=== PATIENT | female | born 1980 | race African-American/Black ===

== ENCOUNTER 2020-07-19 13:00 | Inpatient (IN) | payer BC ==
[~2020-07-19] VITALS: Ht 165.1 cm; Wt 62.5 kg
--- NOTE | ~2020-07-19 | HC ---
[facility] [place] [address] CONSULTATION Name: ROCCO GOLDEN Room #: 459-P [facility] IN M.R.#: [id number] Admission: 07/19/20 Attend Phys: Harpreet Clayton MD Discharge: 07/23/20 Date of : 76 Report #: [id number] THIS REPORT FOR: cc: Reji Ruano K. Steven DO Lundgren, Craig H. MD [facility] ~ DOC #: [id number] Mike Silverman MD [facility] DATE OF SERVICE: 07/21/2020 REASON FOR CONSULTATION: Bradycardia. 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 She was admitted with altered mental status and fevers in excess of 103 degrees. While on telemetry monitoring, she was found to be bradycardic. I was asked to see her in this regard. I have reviewed all telemetry strips. These demonstrate either sinus rhythm or sinus bradycardia. There was concern about junctional bradycardia at a heart rate of 44 during sleeping hours last night at around 4:00 a.m. I have reviewed these strips and there is a low P-wave amplitude found and this is not junctional rhythm, but rather sinus bradycardia. She remains asymptomatic. No chest pain, pressure, or ischemic type symptoms. No heart failure symptoms, no palpitations. No history of near syncope or syncope. ALLERGIES: No known drug allergies. MEDICATIONS: She takes no medicine on a regular basis. PAST MEDICAL HISTORY: Medical records have been reviewed and include a history of asthma and tobacco dependency. SOCIAL HISTORY: She works as a nurse. She smokes and quit last November. She uses marijuana. FAMILY HISTORY: Unremarkable for premature coronary artery disease. REVIEW OF SYSTEMS: All systems negative except as that noted above. PHYSICAL EXAMINATION: GENERAL: Reveals a pleasant woman in no distress. VITAL SIGNS: Blood pressure is 126/80, heart rate of 50 and regular. She is afebrile. HEENT: There are neither xanthelasma, subcutaneous xanthomata; oral mucosal, digital cyanosis or kyphoscoliosis present. LUNGS: Clear to auscultation and percussion. CARDIAC: Regular rate and rhythm with normal S1, S2. No murmurs or rubs. [facility] [address] [place] [address] CONSULTATION Name: ROCCO GOLDEN Room #: 459-P [facility] IN [facility].#: [id number] Admission: 07/19/20 Attend Phys: Harpreet Clayton MD Discharge: 07/23/20 Date of : 76 Report #: [id number] ABDOMEN: Soft and nontender. EXTREMITIES: Without cyanosis, clubbing or edema. Radial pulses are 2+. NEUROLOGIC: She is alert with a nonfocal exam. LABORATORY DATA: Sodium 142, potassium 4.5, creatinine 1.8. TSH is normal. White count 9.3, hemoglobin 14, hematocrit 41, platelet count 186. COVID test is negative. DIAGNOSTIC DATA: Chest x-ray is normal. EKG, sinus bradycardia, otherwise normal. IMPRESSION: 1. Complicated urinary tract infection with associated renal failure. 2. Sinus bradycardia, asymptomatic. 3. Asthma. RECOMMENDATIONS: No therapy is needed for asymptomatic sinus bradycardia, especially during sleeping hours. There is no history to suggest higher grade conduction system disease. Thyroid function studies are normal. No additional or followup cardiovascular testing is needed at this point. The patient was reassured. Thank you for asking me to participate in her care. Mike Silverman MD [facility] By: [phone] Mike Silverman MD, [facility] /nt
[~2020-07-19 13:00] MED LIST: AZITHROMYCIN 2250 MG PO; CIPROFLOXACIN500 M1 PO; DOXYCYCLINE 10100 MG PO; FLEXERIL PO; MOBIC15 MG PO; NOHOMEMEDICATIONS; NORCO 5-325 TA1 EACH PO; PERCOCET 5-3251 EACH PO; PREDNISONE 20 M20 MG PO; PROVENTIL HFA6.7 G1 INH; ZPAK PO
[2020-07-19 13:01] VITALS: BP 112/72
[2020-07-19 13:24] LABS: ABSOLUTE NEUTROPHILS 1.9 thou/uL (1.4-8.2); HEMATOCRIT 40.2 % (37.0-47.0); HEMOGLOBIN 13.9 gm/dL (12.0-15.0); LYMPHOCYTES 50.2 % (24.0-44.0); MCH 32.1 pg (26.0-34.0); MCHC 34.5 g/dL (28.0-37.0); MCV 93.1 fL (80.0-100.0); MONOCYTES 16.2 % (1.0-8.0); PLATELET COUNT 196 thou/uL (150-400); POLYS 32.6 % (36.0-66.0); RBC 4.32 mil/uL (4.20-5.00); RDW 13.5 % (10.5-14.5); WBC 5.7 thou/uL (4.0-11.0)
[2020-07-19 13:31] LABS: CALCIUM 8.6 mg/dL (8.5-10.1); CREATININE 1.1 mg/dL (0.6-1.0); POTASSIUM 3.5 mmol/L (3.5-5.1)
[2020-07-19 13:37] LABS: ALBUMIN 3.6 g/dL (3.4-5.0); TOTAL BILIRUBIN 1.2 mg/dL (0.2-1.0); TOTAL PROTEIN 7.6 g/dL (6.4-8.2)
[2020-07-19 14:00] LABS: URINE BILIRUBIN 2+ (Negative); URINE BLOOD 3+ (Negative); URINE CLARITY CLOUDY; URINE COLOR BROWN; URINE GLUCOSE-RANDOM* NEGATIVE (Negative); URINE KETONES 3+ (Negative); URINE LEUKOCYTES-REFLEX TRACE (Negative); URINE NITRITE-REFLEX NEGATIVE (Negative); URINE PROTEIN (DIPSTICK) 2+ (Negative); URINE SPECIFIC GRAVITY >= 1.030 (1.005-1.035)
[2020-07-19 14:07] LABS: ICTOTEST (BILI CONFIRMATORY) Positive (Negative)
[2020-07-19 14:11] LABS: SQUAMOUS >10 Many /LPF (0-3)
[2020-07-19 14:12] LABS: AMP/METHAMP Negative (Negative); BARBITURATES Negative (Negative); BENZODIAZEPINES Negative (Negative); COCAINE Negative (Negative); METHADONE Negative (Negative); OPIATES Negative (Negative); PCP Negative (Negative); URINE RBC >20 Many /HPF (0-2)
[2020-07-19 14:13] LABS: BACTERIA-REFLEX >30 Many /HPF (None Seen)
[2020-07-19 14:14] LABS: CASTS None Seen /LPF (None Seen); CRYSTALS None Seen /LPF (None Seen)
[2020-07-19 14:51] LABS: SALICYLATE 3.8 mg/dL (2.8-20.0)
[2020-07-19 16:33] LABS: CSF RBC 195 /mm3; VOLUME 4 ml
[2020-07-19 16:40] LABS: CSF GLUCOSE 54 mg/dL (40-70)
[2020-07-19 16:56] LABS: CSF EOSINOPHILS 0 %; CSF LYMPHOCYTES 85 % (40-80); CSF POLYS 5 %
[2020-07-19 16:58] LABS: CSF WBC 37 /mm3 (0-10)
[2020-07-19 19:59] VITALS: BP 91/38
[2020-07-19 20:30] VITALS: BP 98/58
--- NOTE | 2020-07-19 21:00 | NUR ---
ASSUMED CARE FROM ED , UPON ARRIVAL TO ROOM PT ALERT TO SELF AND PLACE BUT APPEARS HARD TO RECALL WHEN DATA BASE COLLECTED. VSS PT PLACED LIVESTOCK COUNTER SHOWS SB 58. PT VERY DROWSY AND VERY SOFT SPOKEN. TALKED WITH AND MOTHER UPDATED ON PT STATUS AND ABLE TO GET HISTORY OF PATIENT. BED ALARM ON , YELLOW SLIPPER ON AND ARM BAND FOR SAFETY. IV FLUIDS INFUSING WELL. WILL CONITNUE WITH CURRENT PLAN AND WILL REPORT CHANGES.
[2020-07-19 21:30] VITALS: BP 117/75
[2020-07-20 05:12] VITALS: BP 131/62
[2020-07-20 07:58] VITALS: BP 101/67
--- NOTE | 2020-07-20 10:34 | NUR ---
PT ALERT AND ORIENTED TIMES FOUR. WITH FLAT AFFECT, SLOW TO RESPOND TO QUESTIONS. VSS. PT DENIES PAIN AT THIS TIME. PT HAS POOR APPETITE. PT UP TO RESTROOM WITH STAND BY ASSIST. WILL CONTINUE TO MONITOR.
--- NOTE | 2020-07-20 15:30 | NUR ---
PT ADMITTED RELATED TO AMS /FEVER. CM REVIEWED CHART AND SPOKE WITH CARE TEAM. CM MET WITH PT AT BEDSIDE THIS DAY. PT APPEARED TO BE A&O X4. CM ROLE INTRODUCED. 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 PT INDICATED NO STEPS TO ENTER AND A FULL FLIGHT INSIDE. 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 PT INDICATED NO HH OR SKILLED HX. PT INDICATED SHE PLANS TO RETURN HOME ONCE MEDICALLY STABLE. PT INDICATED SHE HAS [employer] INSURANCE THROUGH HER EMPLOYER [employer]. CM NOTIFED UR NURSE. IT IS ANTICPATED THAT PT WILL BE HER OVER THE WEEKEND. CM FOLLOWING REGARDING DC PLANNING.
[2020-07-20 16:30] VITALS: BP 124/78
[2020-07-20 19:45] VITALS: BP 103/69
--- NOTE | 2020-07-21 01:07 | NUR ---
patient aox4 makes needs known. patient ambulates with steady gaits.patient c/o pain called dr. handy order of hydrocodone 5/325 q 4 hours prn. patient feels better with no pain meds d/t lower hr no meds given. patient has night sweats this shifts. patient had lower hr 38-40 developmental services worker notified patient had a shower. patient in bed asleep at this time breathing regular and unlabored.
[2020-07-21 01:34] VITALS: BP 111/79
[2020-07-21 07:01] LABS: CALCIUM 8.9 mg/dL (8.5-10.1); CREATININE 1.8 mg/dL (0.6-1.0); POTASSIUM 4.5 mmol/L (3.5-5.1)
[2020-07-21 07:06] LABS: HEMATOCRIT 41.7 % (37.0-47.0); HEMOGLOBIN 14.1 gm/dL (12.0-15.0); MCH 32.3 pg (26.0-34.0); MCHC 33.9 g/dL (28.0-37.0); MCV 95.4 fL (80.0-100.0); RBC 4.37 mil/uL (4.20-5.00); RDW 13.7 % (10.5-14.5); WBC 9.3 thou/uL (4.0-11.0)
[2020-07-21 07:19] VITALS: BP 126/80
--- NOTE | 2020-07-21 11:17 | EKG ---
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
[2020-07-21 15:30] VITALS: BP 124/65
--- NOTE | 2020-07-21 19:44 | NUR ---
MARK HAS RESTED IN BED THROUGH THE DAY. SHE IS ALERT ORIENTED X4. PAIN MEDS PRN ADMINISTERED AND EFFECTIVE IN CONTROLLING BACK PAIN. MULTIPLE IV PLACEMENT AND ALL INFILTRATED. IV TEAM CALLED AND NEW IV PLACED TO RIGHT FA AND THAT ONE ALSO INFILTRATED. WILL CONT WITH PLAN OF CARE.
[2020-07-21 20:00] VITALS: BP 122/68
--- NOTE | 2020-07-22 01:12 | NUR ---
ASSESMENT: PT REMAIN ALERT AND ORIENT TIMES THREE. DROWSY. ABLE TO MAKE NEEDS KNOWN. INITIATED A NEW IV IN THE LEFT UPPER ARM. IVF'S CONTINUE. PT IS SBA WITH AMBULATIONS R/T BEING VERY WEAK. DOES USE CALL LIGHT APPROPRIATELY. VSS, AFEBRILE. SB PER MONITOR. HR DROP TO MID 40'S WHILE ASLEEP. SLOW PROGRESS TOWARDS DC GOALS,. WILL CONTINUE TO MONITOR.
[2020-07-22 04:50] LABS: ABSOLUTE NEUTROPHILS 7.4 thou/uL (1.4-8.2); BASOPHILS 0.6 % (0.0-2.0); EOSINOPHILS 0.1 % (0.0-3.0); HEMATOCRIT 37.6 % (37.0-47.0); HEMOGLOBIN 12.7 gm/dL (12.0-15.0); LYMPHOCYTES 16.4 % (24.0-44.0); MCH 31.8 pg (26.0-34.0); MCHC 33.6 g/dL (28.0-37.0); MCV 94.6 fL (80.0-100.0); MONOCYTES 5.9 % (1.0-8.0); PLATELET COUNT 211 thou/uL (150-400); RBC 3.98 mil/uL (4.20-5.00); WBC 9.6 thou/uL (4.0-11.0)
[2020-07-22 05:12] LABS: ALBUMIN 2.9 g/dL (3.4-5.0); CALCIUM 8.6 mg/dL (8.5-10.1); CREATININE 1.4 mg/dL (0.6-1.0); MAGNESIUM 2.2 mg/dL (1.8-2.4); PHOSPHORUS 3.7 mg/dL (2.6-4.7); POTASSIUM 4.1 mmol/L (3.5-5.1); TOTAL BILIRUBIN 0.7 mg/dL (0.2-1.0); TOTAL PROTEIN 6.8 g/dL (6.4-8.2)
[2020-07-22 07:48] VITALS: BP 135/62
[2020-07-22 09:58] LABS: FOLIC ACID 7.4 ng/mL (8.6-58.9)
--- NOTE | 2020-07-22 10:55 | NUR ---
Patient HR 46, Dr. Garay is aware of it.
[2020-07-22 17:28] VITALS: BP 112/57
[2020-07-22 21:32] VITALS: BP 100/56
[2020-07-22 21:45] VITALS: BP 100/56
--- NOTE | 2020-07-23 01:08 | NUR ---
ASSUMED CARE OF PT AT SHIFT CHANGE. PT IS AOX3 AND LETS NEEDS BE KNOWN. PT IS UP AD [place]. PT REPORTED SOME PAIN AND WAS TREATED WITH PRN PAIN MEDS. ASSESSMENT CHARTED. PT RUNS SB (HR 40S) ON TELE; PROVIDERS AWARE. ASSESSMENT CHARTED. IVF AND ABX CONTINUED. PT REPORTED BEING TIRED AND WEAK. PT SLEPT PART OF THE SHIFT. VSS AND NO S/S OF ACUTE DISTRESS. WILL CONITNUE TO MONITOR FOR CHANGES.
[2020-07-23 07:43] VITALS: BP 144/82
[2020-07-23 10:33] VITALS: BP 144/82
--- NOTE | 2020-07-23 10:42 | NUR ---
Assumed pt care this am, VS stable. Went down for and xray of the spine this am. Ud ad yen , steady on her gait and is able to ambulate with no issues. Appetite is poor, did not want her am meal tray. Chlronic pain in the neckl was noted and verbalized, pain is managed with medications parital relief is noted.
[2020-07-23] MEDS ORDERED: ACETAMINOPHEN325 M1 PO ×2 (11:51→14:43)
[2020-07-23] MEDS ORDERED: CEFDINIR300 MG PO ×2 (11:51→14:43)
[2020-07-23] MEDS ORDERED: PEPCID20 MG PO ×2 (11:51→14:43)
[2020-07-23 12:50] VITALS: BP 144/82
--- NOTE | 2020-07-23 13:47 | NUR ---
CARE TEAM INDICATD THAT PT IS MEDICALLY STABLE TO DC HOME THIS DAY. PT IS TO DC HOME TO SELF CARE. PT HAS TRANSPORT AVAIABLE. NO OTHER CM INTERVENTION INDICATED. CASE CLOSED.
--- NOTE | 2020-07-23 14:53 | NUR ---
Assumed pt care vs stable. went down for x-ray d/t verbalized pain in the spine. Steady in her gait and is able to ambulate with no issues. Diet and medications are well tolerated. POC followed with no signs of distress. Pain was mentioned in her neck stating a 10, medications given partial relief is noted. DC instructions and prescriptions given to the pt, awaiting package pick up.
--- NOTE | 2020-07-24 17:06 | PATH ---
[facility] [address] [place] [address] PATHOLOGY RPT PROCEDURE Name: ROCCO GOLDEN Room #: 459-P DIS IN M.R.#: [id number] Admission: 07/19/20 Date of : 76 Discharge: 07/23/20 Report #: [id number] Path Case #: [id number] Note [facility] Accession Number: [id number] TESTS RESULT FLAG UNITS REF RANGE LAB Clinician Provided Cytology Information No. of containers..01 Other (Miscellaneous) Source: CSF DIAGNOSIS: 02 CSF NEGATIVE FOR MALIGNANT EPITHELIAL CELLS. NUMEROUS LYMPHOCYTES PRESENT ALONG WITH MACROPHAGES. NEGATIVE FOR PARASITIC ORGANISMS OR VIRAL INCLUSIONS. Comment: Numerous lymphocytes are identified. The differential diagnosis includes a reactive process as well as neoplastic process. Clinical correlation is suggested. A small portion is sent for flow cytometric analysis to ; an addendum will follow subsequent to receiving the report. Pathologist ICD10: 02 R41.82 Signed out by: Carlos Lowry MD, Pathologist NPI- [id number] Performed by: Jim Balderas, Inseam Leveler ([facility]) Gross description: 01 2ML, COLORLESS, 1TP /LCS 07/23/2020 0812 Local FLAG LEGEND: L-Low Normal,H-High Normal,LL-Alert Low,HH-Alert High <-Panic Low,>-Panic High,A-Abnormal,AA-Critical Abnormal Performed at: 01 [facility] [address] [place] [address] Matt Billy MD, [address] [address] Ivonne Lowry MD, Specimen Comment: A courtesy copy of this report has been sent to [phone] Specimen Comment: [phone], Specimen Comment: Report sent to ,DR CORONEL / DR LEWIS [address] [address] PATHOLOGY RPT PROCEDURE Name: ROCCO GOLDEN Room #: 459-P [facility] IN ..#: [id number] Admission: 07/19/20 Date of : 76 Discharge: 07/23/20 Report #: [id number] Path Case #: [id number] Performed at: 01 [facility] [place] [address], [place], [place] [id number] MD Matt Billy MD Phone: [phone]
== END 2020-07-23 16:59 | disposition home or self-care (01) | DRG 871 ==
LOC: ER 13:00 → EROBS 16:08 → 4W 16:08
PROVIDERS: Emergency Medicine; Internal Medicine; ADMIT Hospitalist; ATTEND Hospitalist
PROC: 009U3ZZ Drainage of Spinal Canal, Percutaneous Approach (ICD-10-PCS; principal; 2020-07-19)
DX: A41.9 Sepsis, unspecified organism (principal); G92 Toxic encephalopathy; N39.0 Urinary tract infection, site not specified; N17.9 Acute kidney failure, unspecified; E46 Unspecified protein-calorie malnutrition; J45.909 Unspecified asthma, uncomplicated; F17.210 Nicotine dependence, cigarettes, uncomplicated; F12.90 Cannabis use, unspecified, uncomplicated; M47.812 Spondylosis without myelopathy or radiculopathy, cervical region; E86.0 Dehydration; Z20.822 Contact with and (suspected) exposure to COVID-19; Z68.22 Body mass index [BMI] 22.0-22.9, adult; Z79.899 Other long term (current) drug therapy
CPT/HCPCS: 10045